=== PATIENT | female | born 1985 | race Caucasian/White ===

== ENCOUNTER 2020-07-03 23:20 | Emergency (ER) | payer OTHER, SELFPAY ==
[2020-07-03 23:24] VITALS: BP 119/52; PULSE 91; RESP 16; TEMP 35.8; O2SAT 99
[2020-07-03] MEDS: HYDROcodone/acetaminophen (*CRX) 5-325 MG TABLET 1 TAB PO (23:52)
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
[2020-07-04 00:35] VITALS: BP 116/74; PULSE 75; RESP 18; O2SAT 98
== END 2020-07-04 00:35 | disposition home or self-care (01) ==
PROVIDERS: Emergency Provider Family Medicine
DX: T23.252A Burn of second degree of left palm, initial encounter (principal); T31.0 Burns involving less than 10% of body surface; X15.3XXA Contact with hot saucepan or skillet, initial encounter
CPT/HCPCS: 16020; 99283; A9270

== ENCOUNTER 2021-04-04 01:24 | Emergency (ER) | payer OTHER, SELFPAY ==
[2021-04-04 01:26] VITALS: BP 120/73; PULSE 86; RESP 18; TEMP 36.4; O2SAT 99
--- NOTE | 2021-04-04 02:25 | ED.DENTAL ---
HPI - Dental/Oral General Chief complaint: Dental/Oral Stated complaint: dental pain, headache Time Seen by Provider: 04/04/21 02:06 History of Present Illness HPI Narrative: Patient presents with dental pain. She reports she fractured a tooth approximately 2 months ago and has been attempting to get into see a dentist. She has an appointment scheduled for next week however over the past couple days her pain is increased and is radiating up her jaw. Pain is achy, constant, worse with chewing. She denies any fevers, nausea, vomiting she denies any difficulty swallowing or shortness of breath. Teeth map: 1. Related Data Home Medications Medication Instructions Recorded Confirmed hydroxyzine HCl 04/04/21 venlafaxine mg PO 04/04/21 Allergies Allergy/AdvReac Type Severity Reaction Status Date / Time pineapple Allergy Severe Swelling Verified 04/04/21 01:34 of Lip/Tongue/Throat diphenhydramine Allergy Intermediate Hives Verified 04/04/21 01:34 [From Amanda] Review of Systems Review of Systems: CONSTITUTIONAL: Denies fever, chills, or sweats. EYES: Denies visual changes, redness, or discharge. ENT: Denies rhinorrhea, congestion, sore throat, or otalgia. CARDIOVASCULAR: Denies chest pain, palpitations, or edema. RESPIRATORY: Denies cough or dyspnea. GASTROINTESTINAL: Denies abdominal pain, nausea, vomiting, or diarrhea. GENITOURINARY: Denies dysuria or hematuria. SKIN: Denies rash or itching. MUSCULOSKELETAL: Denies back pain, joint pain, or myalgia. NEUROLOGIC: Denies headache, numbness, dizziness, or weakness. PSYCHIATRIC: Denies anxiety or depression. All systems reviewed & are unremarkable except as noted in HPI and below Exam Narrative: GENERAL: Well-appearing, well-nourished, and in no acute distress. HEAD: Normocephalic, atraumatic. EYES: PERRLA and EOMI. ENT: Nares clear, no rhinorrhea or epistaxis. Mucous membranes moist. Poor dentition there is a fractured tooth number 20 with tenderness and edema at the gumline no purulent material expressed EXTREMITIES: Normal range of motion. No edema. SKIN: Warm, dry, no rash. NEURO: No focal deficits. Alert and oriented x3. PSYCH: Normal mood and affect. Course Vital Signs Vital signs: Vital Signs Temperature 36.4 C L 04/04/21 01:26 Pulse Rate 86 04/04/21 01:26 Respiratory Rate 18 04/04/21 01:26 Blood Pressure 120/73 04/04/21 01:26 Pulse Oximetry 99 04/04/21 01:26 Temperature 36.4 C L 04/04/21 02:55 Pulse Rate 86 04/04/21 01:26 Respiratory Rate 18 04/04/21 01:26 Blood Pressure 120/73 04/04/21 01:26 Pulse Oximetry 99 04/04/21 01:26 MDM - Dental/Oral MDM Narrative Medical decision making narrative: H&P as above, vss, pt looks clinically well, exam with edema on the left jaw, labs/img considered. symptomatic relief available as needed, on reevaluation pt continues to looks clinically well. Suspect dental abscess related to fractured tooth, dns Sb's angina, severe sepsis, necrotizing soft tissue infection, airway compromise. Patient has appointment scheduled with dentist next week with a reassuring exam patient is appropriate for outpatient supportive therapies and antibiotics. Patient comfortable with outpatient plan. Discharge Plan Discharge Clinical Impression: Abscess, dental Prescriptions: New oxycodone-acetaminophen 5-325 mg tablet 1 tablet PO Q4H PRN (Reason: pain) Qty: 10 RF: 0 penicillin V potassium 500 mg tablet 500 mg PO QID 7 Days Qty: 28 RF: 0 No Action venlafaxine 150 mg capsule,extended release 24hr PO RF: 0 hydroxyzine HCl 25 mg tablet RF: 0 Follow-up/Referrals: PHYSICIAN,PHOTOGRAPH DEVELOPER [Primary Care Provider] - Time of Disposition: 02:41
[2021-04-04] MEDS: KETOROLAC 30 MG/ML VIAL (*BKC) IM (02:29)
[2021-04-04 02:55] VITALS: TEMP 36.4
== END 2021-04-04 03:03 | disposition home or self-care (01) ==
PROVIDERS: Emergency Provider Emergency Medicine
DX: K04.7 Periapical abscess without sinus (principal)
CPT/HCPCS: 96372; 99283; J1885